=== PATIENT | female | born 1995 | race Asian ===

== ENCOUNTER 2021-12-30 15:10 | Inpatient (IN) | payer BC, SELFPAY ==
[2021-12-30 15:14] VITALS: BP 121/73; BP 124/73; PULSE 72; PULSE 90; RESP 16; TEMP 36.2; O2SAT 100; O2SAT 99; BMI 25.0
[2021-12-30 16:44] LABS: COVID-19 Test Negative (Negative)
--- NOTE | 2021-12-30 16:57 | ED_ITS ---
HPI - Psych General Chief Complaint: Psychiatric Symptoms Stated Complaint: crisis Time Seen by Provider: 12/30/21 16:54 Source: patient and EMS Mode of arrival: EMS Limitations: no limitations History of Present Illness HPI Narrative: Patient is a 26 year old female presenting to the emergency department today with suicidal ideation. Patient states that she has a history of bipolar disorder and depression for which she takes [place]. Patient states that [place] was helping up until a few days ago. Patient's school counselor called and stated that the patient has suicidal ideation, has been shopping for a gun online and plans to go to the [employer] and shoot herself. Patient denies any dizziness, lightheadedness, abdominal pain, nausea, vomiting, fever, chills, blurry vision, double vision, loss of vision, chest pain, difficulty breathing, shortness of breath, back pain, night sweats, pain with urination, increased urinary frequency, increased urinary urgency, blood in her urine or stool, sync ope or a near syncopal episode, recent trauma or falls, bowel incontinence, bladder incontinence, bowel retention, bladder retention, or any other complaints at this time. MD complaint: suicidal ideation Onset (ago): day(s) Duration: constant History of same: Yes Relieving factors: none Exacerbating factors: none Associated psychiatric symptoms: depression and suicidal ideation Related Data Home Medications Medication Instructions Recorded Confirmed lithium carbonate 450 mg 450 tab PO BID 12/30/21 12/30/21 tablet,extended release Allergies Allergy/AdvReac Type Severity Reaction Status Date / Time No Known Allergies Allergy Verified 12/30/21 16:54 Review of Systems Constitutional: Constitutional: Reports no additional constitutional complaints, Denies chills, Denies fever(s) and Denies night sweats Eyes: Eyes: Reports no additional eye complaints, Denies blurry vision, Denies change in vision, Denies diplopia, Denies eye discharge, Denies loss of vision a nd Denies eye pain ENT: Denies dizziness Cardiovascular: Cardiovascular: Reports no additional cardiovascular compla ints, Denies chest pain, Denies lightheadedness, Denies Loss of Consciousness and Denies dyspnea Respiratory: Respiratory: Reports no additional respiratory complaints and Denies dyspnea Gastrointestinal: Gastrointestinal: Reports no additional gastrointestinal complaints, Denies abdominal pain, Denies melena, Denies hematochezia, Denies change in bowel habits and Denies change in stool character Genitourinary: Genitourinary: Denies hematuria, Denies urinary frequency, Denies dysuria, Denies urinary incontinence, Denies urinary hesitancy and Denies urinary urgency Musculoskeletal: Musculoskeletal: Reports no additional musculoskeletal complaints, Denies numbness and Denies tingling Neurologic: Denies dizziness, Denies loss of vision, Denies numbness and Denies tingling Psychiatric: Psychiatric: Reports no additional psychiatric complaints, Reports depression, Denies homicidal ideation and Reports suicidal ideation Endocrine: Endocrine: Reports no additional endocrine complaints Hematologic/Lymphatic: Hematologic/Lymphatic: Reports no additional hematologic/lymphatic complaints Allergic/Immunologic: Allergic/Immunologic: Reports no additional allergic/immunologic complaints [facility] Past Medical History Attestation statement: The following information was validated with the patient. Source: old records reviewed Social History Social History Advance Directives: No Advance Directives Information Provided: No Physical Exam Vital Signs: Vital Signs: Last Vital Signs Temp 97.2 F 12/30/21 15:14 Pulse 90 12/30/21 15:14 Resp 16 12/30/21 15:14 BP 124/73 12/30/21 15:14 Pulse Ox 100 12/30/21 15:14 BMI result Body Mass Index 25.0 Const: General: cooperative, no acute distress, alert and awake Nutritional Appearance: well nourished Orientation/consciousness: patient oriented x3 Limitations: no limitations HENMT: Head: Yes normal to inspection and Yes atraumatic Ears: hearing grossly normal bilaterally and external ears normal General nose exam: Normal external nose present, no nasal discharge noted and no epistaxis Face and sinus: Yes normal facial exam, No abrasion and No laceration Mouth: Normal or al and palatal mucosa present, no drooling and no muffled voice Eyes: General: appearance normal, both eyes and all related structures Periorbital: periorbital findings normal Eyelids: Yes eyelids normal Conjunctivae: conjunctivae normal Pupils: Equal, round and reactive pupils present EOM: EOMs intact bilaterally Neck: Neck: Yes normal visual inspection, Yes full ROM and Yes no lymphadenopathy Chest: Chest palpation & inspection: normal inspection of the chest Resp: Effort & Inspection: normal respiratory effort and able to speak in complete sentences Auscultation: clear to auscultation bilaterally Cardio: Rate: regular rate Rhythm: regular rhythm GI: Inspection: Yes normal to inspection Neuro: General: patient oriented x3 and moves all extremities Cranial nerves: Yes Equal, round and reactive pupils present Cognition (Neuro): normal cognition Motor exam (neuro): 5/5 motor strength present throughout Sensory Exam: Normal double simultaneous stimulation for sensation Coordination: [id number] test normal Extrem: General: Yes normal to inspection, Yes full ROM and Yes capillary refill normal Psych: Appearance: grossly normal Mental Status: mental status grossly normal Affect: normal affect Attitude: cooperative Thought process: Normal thought process present Thought content: Suicidality present and no homicidality Insight: Good insight present (Psych) MDM - Psych MDM Narrative Medical decision making narrative: Patient is a 26 year old male presenting to the emergency department today with suicidal ideation. Patient's physical exam was significant for acute suicidal ideation. Patient's blood work was unremarkable. I explained my physical exam findings as well as all test results to the patient. I answered all questions asked by the patient. Patient was evaluated by the CARE team who obtained a section 12 and plan to have the patient taken upstairs to the psychiatric unit in the morning. Patient to be placed under physician observation at 2039. Differential Diagnosis Differential diagnosis: Likely depression Medical Records Attestation: I reviewed the patient's medical records. Lab Data Attestation: I reviewed the patient's lab results. Result diagrams: 12/30/21 17:12 12/30/21 17:12 Labs: Lab Results 12/30/21 12/30/21 12/30/21 Range/Units 16:22 16:58 17:12 WBC (4.8-10.8) X10*3/uL RBC (4.20-5.50) X10*6/uL Hgb (12.0-16.0) g/dl Hct (37.0-47.0) % MCV (80.0-98.0) fL MCH (27.0-33.0) pg MCHC (31.0-35.0) g/dl RDW (11.0-16.0) % Plt Count (160-400) X10*3/uL MPV (9.4-12.3) fL Immature Gran % (Auto) (0.0-0.4) % Neut % (Auto) (45-73) % Lymph % (Auto) (20-40) % Coleman % (Auto) (2-11) % Eos % (Auto) (0-4) % Baso % (Auto) (0-2) % Lymph # (Auto) (1.2-4.9) X10*3/uL [place] # (Auto) (0.1-1.2) X10*3/uL Eos # (Auto) (0.0-0.4) X10*3/uL Baso # (Auto) (0.0-0.2) X10*3/uL Abs Immat Gran (auto) (0.00-0.03) X10*3/uL Absolute Neuts (auto) (2.0-8.3) x10*3/uL Absolute Nucleated RBC (0.0-0.012) X10*3/uL Nucleated RBC % (auto) (0.0-0.2) /100WBC Sodium (135-145) mmol/L Potassium (3.3-5.1) mmol/L Chloride (96-108) mmol/L Carbon Dioxide (22-29) mmol/L Anion Gap (12-20) BUN (9-16) mg/dL Creatinine (0.5-1.4) mg/dL Estim Creat Clear Calc Estimated GFR Random Glucose (60-115) mg/dL Calcium (8.4-10.2) mg/dL Total Bilirubin (0.0-1.0) mg/dL AST (5-31) U/L ALT (0-31) U/L Alkaline Phosphatase (39-117) U/L Total Protein (6.5-8.0) g/dL Albumin (3.5-5.0) g/dL TSH (0.32-4.0) uIU/mL Urine Opiates Screen Not Detected (Not Detect) Urine Fentanyl Screen Not Detected (Not Detect) Ur Barbiturates Screen Not Detected (Not Detect) Ur Phencyclidine Scrn Not Detected (Not Detect) Ur Amphetamines Screen Not Detected (Not Detect) U Benzodiazepines Scrn Not Detected (Not Detect) [place] 0.72 (0.60-1.20) mmol/L Urine Cocaine Screen Not Detected (Not Detect) U Marijuana (THC) Screen Not Detected (Not Detect) Ethyl Alcohol mg/dL COVID-19 (UBALDO) Negative (Negative) COVID-19 Clin Com See Note 12/30/21 12/30/21 12/30/21 Range/Units 17:12 17:12 17:12 WBC 13.2 H (4.8-10.8) X10*3/uL RBC 4.78 (4.20-5.50) X10*6/uL Hgb 13.1 (12.0-16.0) g/dl Hct 40.0 (37.0-47.0) % MCV 83.7 (80.0-98.0) fL MCH 27.4 (27.0-33.0) pg MCHC 32.8 (31.0-35.0) g/dl RDW 13.9 (11.0-16.0) % Plt Count 413 H (160-400) X10*3/uL MPV 9.6 (9.4-12.3) fL Immature Gran % (Auto) 0.3 (0.0-0.4) % Neut % (Auto) 75.0 H (45-73) % Lymph % (Auto) 16.7 L (20-40) % Coleman % (Auto) 4.8 (2-11) % Eos % (Auto) 2.4 (0-4) % Baso % (Auto) 0.8 (0-2) % Lymph # (Auto) 2.2 (1.2-4.9) X10*3/uL Coleman # (Auto) 0.6 (0.1-1.2) X10*3/uL Eos # (Auto) 0.3 (0.0-0.4) X10*3/uL Baso # (Auto) 0.1 (0.0-0.2) X10*3/uL Abs Immat Gran (auto) 0.04 H (0.00-0.03) X10*3/uL Absolute Neuts (auto) 9.9 H (2.0-8.3) x10*3/uL Absolute Nucleated RBC 0.000 (0.0-0.012) X10*3/uL Nucleated RBC % (auto) 0.0 (0.0-0.2) /100WBC Sodium 139 (135-145) mmol/L Potassium 4.3 (3.3-5.1) mmol/L Chloride 106 (96-108) mmol/L Carbon Dioxide 23 (22-29) mmol/L Anion Gap 14 (12-20) BUN 9 (9-16) mg/dL Creatinine 1.30 (0.5-1.4) mg/dL Estim Creat Clear Calc 62.4 Estimated GFR 50 Random Glucose 94 (60-115) mg/dL Calcium 9.9 (8.4-10.2) mg/dL Total Bilirubin 0.5 (0.0-1.0) mg/dL AST 26 (5-31) U/L ALT 16 (0-31) U/L Alkaline Phosphatase 90 (39-117) U/L Total Protein 7.7 (6.5-8.0) g/dL Albumin 4.5 (3.5-5.0) g/dL TSH 0.85 (0.32-4.0) uIU/mL Urine Opiates Screen (Not Detect) Urine Fentanyl Screen (Not Detect) Ur Barbiturates Screen (Not Detect) Ur Phencyclidine Scrn (Not Detect) Ur Amphetamines Screen (Not Detect) U Benzodiazepines Scrn (Not Detect) [place] (0.60-1.20) mmol/L Urine Cocaine Screen (Not Detect) U Marijuana (THC) Screen (Not Detect) Ethyl Alcohol < 10 mg/dL COVID-19 (UBALDO) (Negative) COVID-19 Clin Com Discharge Plan Discharge Clinical Impression: Bipolar disorder, Suicidal ideation Patient Disposition: Still a Patient Prescriptions: No Action lithium carbonate 450 mg tablet extended release 450 tab PO BID 0RF Print Language: Vietnamese
[2021-12-30 17:19] LABS: MANUAL DIFF FLAG NO
[2021-12-30 17:20] LABS: Basophils Absolute Auto 0.1 X10*3/uL (0.0-0.2); Basophils Percent Auto 0.8 % (0-2); Eosinophils Absolute Auto 0.3 X10*3/uL (0.0-0.4); Eosinophils Percent Auto 2.4 % (0-4); Hemoglobin 13.1 g/dl (12.0-16.0); Imm Gran Abs Auto 0.04 X10*3/uL (0.00-0.03); Imm Gran Pct Auto 0.3 % (0.0-0.4); Lymphocytes Absolute Auto 2.2 X10*3/uL (1.2-4.9); Lymphocytes Percent Auto 16.7 % (20-40); Mean Corpuscular HGB Conc 32.8 g/dl (31.0-35.0); Mean Corpuscular Hemoglobin 27.4 pg (27.0-33.0); Mean Corpuscular Volume 83.7 fL (80.0-98.0); Mean Platelet Volume 9.6 fL (9.4-12.3); Monocytes Absolute Auto 0.6 X10*3/uL (0.1-1.2); Monocytes Percent Auto 4.8 % (2-11); Neutrophils Absolute Auto 9.9 x10*3/uL (2.0-8.3); Platelet Count 413 X10*3/uL (160-400); Red Blood Count 4.78 X10*6/uL (4.20-5.50); Red Cell Distribution Width 13.9 % (11.0-16.0); White Blood Count 13.2 X10*3/uL (4.8-10.8)
[2021-12-30 17:27] LABS: Lithium 0.72 mmol/L (0.60-1.20)
[2021-12-30 17:27] LABS: Amphetamine Screen Urine Not Detected (Not Detect); Barbiturates, Urine Not Detected (Not Detect); Benzodiazepines Screen Urine Not Detected (Not Detect); Cannabinoid Screen Urine Not Detected (Not Detect); Cocaine Screen Urine Not Detected (Not Detect); Fentanyl, urine Not Detected (Not Detect); Opiate Screen Urine Not Detected (Not Detect); Phencyclidine Screen Urine Not Detected (Not Detect)
[2021-12-30 17:32] LABS: Ethanol < 10 mg/dL
[2021-12-30 17:34] LABS: Alanine Aminotransferase 16 U/L (0-31); Albumin Level 4.5 g/dL (3.5-5.0); Alkaline Phosphatase 90 U/L (39-117); Anion Gap 14 (12-20); Aspartate Amino Transferase 26 U/L (5-31); Bilirubin Total 0.5 mg/dL (0.0-1.0); Blood Urea Nitrogen 9 mg/dL (9-16); Calcium 9.9 mg/dL (8.4-10.2); Carbon Dioxide 23 mmol/L (22-29); Chloride 106 mmol/L (96-108); Creatinine Clr Calc Pharmacy 62.4; Estimated Glomerular Filt Rate 50; Glucose Random 94 mg/dL (60-115); Potassium 4.3 mmol/L (3.3-5.1); Sodium 139 mmol/L (135-145); Total Protein 7.7 g/dL (6.5-8.0)
[2021-12-30 17:54] LABS: TSH reflex Free T4 0.85 uIU/mL (0.32-4.0)
--- NOTE | 2021-12-30 18:35 | PC.NURSE ---
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 Doris stated the pt told her that she researched on the internet how and where to purchase a firearm because she wants to go into the [employer] and kill herself. currently pt admits si, denies hi. pt on constant supervision, bhn consult sent, pt seen by care team.
[2021-12-30] MEDS: Lithium Carbonate ER 450 MG TABLET.ER PO (21:08)
[2021-12-30] MEDS: diphenhydrAMINE HCL 25 MG TABLET 50 MG PO (22:47)
[2021-12-30] MEDS: OLANZapine 5 MG TABLET PO (22:47)
--- NOTE | 2021-12-31 | ECG_ITS ---
Test Reason : MED CLEARANCE Blood Pressure : / mmHG Vent. Rate : 071 BPM Atrial Rate : 071 BPM P-R Int : 164 ms QRS Dur : 084 ms QT Int : 368 ms P-R-T Axes : 027 074 040 degrees QTc Int : 399 ms Normal sinus rhythm with sinus arrhythmia Nonspecific T wave abnormality Borderline ECG No previous ECGs available Referred By: Ann Jara Electronically Signed By:AKHIL MATTHEWS
--- NOTE | 2021-12-31 00:03 | PC.NURSE ---
Patient was agitated over not being able to sleep, provider notified/ordered Olanzapine 5 mg po and Benadryl 50 mg po administered as ordered at 2247 with positive effect, VSS, disposition per care team is section 12 inpatient bed search, will continue to monitor.
--- NOTE | 2021-12-31 06:33 | PC.NURSE ---
Patient slept through the night, no distress observed/reported, behavior non concerning at this time, medication compliant, mood depressed, disposition per care team is section 12 inpatient bed search, will continue to monitor.
[2021-12-31 06:49] VITALS: BP 100/53; PULSE 53; RESP 15; TEMP 36.7; O2SAT 99
--- NOTE | 2021-12-31 07:16 | PC.NURSE ---
patient appears to remain asleep at present respirations are even and unlabored, patient appears in no distress.
[2021-12-31] MEDS: Lithium Carbonate ER 450 MG TABLET.ER PO ×2 (13:54→21:36)
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
[2021-12-31 16:56] VITALS: BMI 25.0
[2021-12-31 16:57] VITALS: BP 129/67; PULSE 95; RESP 18; TEMP 36.4; O2SAT 95
--- NOTE | 2021-12-31 17:10 | PC.NURSE ---
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 During a risk assessment completed by the clinician at [facility], Cynthia requested an increase in her lithium dosage and reported she had been researching nearby states to access firearms. Cynthia reports that [place] 'stopped working' and she finds herself in depressive states more often. She endorses continued thoughts of SI, though acknowledges that she cannot access a gun while on the unit. 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 It's never not consensual because I'm too drunk to refuse.' Cynthia reports a past attempt to hang herself when she was 14 years old but none since. She reports a hx of trauma, PTSD. Cynthia denies any significant medical history. She denies HI, denies AH or VH.
[2021-12-31] MEDS: diphenhydrAMINE HCL 25 MG TABLET 50 MG PO (21:36)
[2022-01-01] MEDS: Lithium Carbonate ER 450 MG TABLET.ER PO ×2 (10:45→21:19)
[2022-01-01 10:46] VITALS: BP 112/70; PULSE 67; RESP 16; TEMP 37.1; O2SAT 100
[2022-01-01 17:17] LABS: UPreg QC Valid YES; Urine Pregnancy NEGATIVE (NEGATIVE)
--- NOTE | 2022-01-01 18:22 | P.PNPSI_ITS ---
Subjective Subjective Date of Service: 01/01/22 Reason For Visit: SI Interim History: Patient seen and discussed with team. Patient evaluated this today and upon interview she reports they gave me drugs so I slept pretty good. States on zyprexa 5 mg QHS she woke up and didnt feel too drowsy, felt natural. Pt is still laughing incongruently during interview, intense eye contact at times. Mood is pretty okay. Discusses her bf, who is age 60 in [place], [place]. Says he is sending her cookies, books, and a puzzle to the unit and he bought her a plane ticket to see him over spring, bought her new ice skates, will be buying me ice skating lessons for every single day im there. She states the relationship is consensual and that she feels safe, however also says without him, financially i wouldnt get by and that i'm choosing to be in this relationship rather than work. Denies hallucinations or thought disorder. Denies racing thoughts. Says her anxiety is not much. Was feeling stepan suicidal earlier today, but currently denies SI. States she had SI thoughts because someone was interviewing me, I got angry because i had to relive everything again and that I started giving them a hard time. ? Patient is safe and present in the milieu, interacting with peers. Denies irritability or assaultive ideation. Says she feels safe. Medication Compliance: Yes Side effects from medications: No Attending Groups: Yes Review of Systems Acute medical concerns: No Medical Review of Systems: unchanged Mental Status Exam Mental Status Exam Narrative: A&O. Casual dress, good hygiene. Intense eye contact at times, mostly attentive. No Tics or Tremors. No abnormal involuntary movements. Pt is engaged in conversation. Non-pressured speech, spontaneous with regular rate and rhythm, however speaking in notable baby voice (high pitched). Mood is okay, affect is labile, laughing. Denies active/ passive SI, denies SIB/HI upon inquiry. Denies A/VH or delusional thought content. Thoughts continue to be distorted, rigid. No known cognitive or memory impairment. Insight/ Judgment limited but adequate. Diagnostics Vital Signs (24Hr): Vital Signs - 24 hr 01/01/22 10:46 Temperature 98.7 F Pulse Rate 67 Respiratory Rate 16 Blood Pressure 112/70 Pulse Oximetry 100 BMI result Body Mass Index 25.0 Labs Results: 12/30/21 17:12 12/30/21 17:12 Labs: Laboratory Results - last 48 hr 01/01/22 17:01 Urine Test NEGATIVE Medications Medications Current Medications Acetaminophen (Acetaminophen 325 Mg Tablet) 650 mg PO Q6H PRN PRN Reason: Headache/Pain Mild Scale (1-3) Al Hydroxide/Mg Hydroxide (Magnesium Hydrox/Alum Hydrox 30 Ml Oral.Susp) 30 ml PO Q6H PRN PRN Reason: Heartburn/Nausea Diphenhydramine HCl (Diphenhydramine Hcl 25 Mg Tablet) 50 mg PO BEDTIME PRN PRN Reason: Sleep Last Admin: 12/31/21 21:36 Dose: 50 mg Documented by: Hydroxyzine HCl (Hydroxyzine Hcl 25 Mg Tablet) 25 mg PO Q6H PRN PRN Reason: Anxiety [place] Carbonate ([place] Carbonate Er 450 Mg Tablet.Er) 450 mg PO BID BRIGHT Last Admin: 01/01/22 10:45 Dose: 450 mg Documented by: Magnesium Hydroxide (Milk Of Magnesia 30 Ml Oral.Susp) 30 ml PO DAILY PRN PRN Reason: Constipation Olanzapine (Olanzapine 5 Mg Tablet) 5 mg PO BEDTIME PRN PRN Reason: agitation Trazodone HCl (Trazodone Hcl 50 Mg Tablet) 50 mg PO BEDTIME PRN PRN Reason: Insomnia Allergies Allergies Allergy/AdvReac Type Severity Reaction Status Date / Time No Known Allergies Allergy Verified 12/30/21 16:54 Assessment & Plan Assessment & Plan (1) Bipolar II disorder: Status: Acute Code(s): F31.81 - Bipolar II disorder (2) Post traumatic stress disorder (PTSD): Status: Acute Code(s): F43.10 - Post-traumatic stress disorder, unspecified (3) Borderline personality disorder: Status: Acute Code(s): F60.3 - Borderline personality disorder Plan 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 Female, Sophomore at [employer], who carries a dx of bipolar II DO, PTSD. Appears to have BPD. I would also rule out schizoaffective DO, bipolar type. Pt presents somewhat bizarrely, using what can best be described as sexy baby voice during interview, however she has insight into this and says she is frustrated with it. 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 Affect is bizarre, as pt is laughing incongruently, activated. She denies hallucinations. Her thinking is rigid and illogical at times. She continues to endorse passive SI. Has limited past psych hx, as she briefly participated in OP therapy and is now working with Dr. Devlin, [facility]. Says lithium trial is her first psychotropic medication trial. Plan: Pt states she wants to continue on lithium, would be willing to trail an increased dose. Li level is 0.72. She was given zyprexa 5 mg and benadryl 50 mg while in the ED BH pod, says this helped with sleep and she would like to try this again tonight. Will defer to primary psych team for further adjustment. Monitor response to medications. Monitor for safety in the milieu. Discharge on stabilization. Patient seen. Chart reviewed. Discussed with team. Obtain collateral contact info?as needed 01/01: increase zyprexa to 10 mg QHS to target mood lability. I spent minutes with the patient and/or on the patient floor today, greater than?50% of which was spent counseling/coordinating care. Reason for contiued inpatient stay Substantial Risk for: harm to self, rapid decompensation and med/psych decompensation
[2022-01-01 20:37] VITALS: BP 116/66; PULSE 84; TEMP 36.6; O2SAT 100
[2022-01-01] MEDS: OLANZapine 10 MG TABLET PO (21:19)
[2022-01-01] MEDS: diphenhydrAMINE HCL 25 MG TABLET 50 MG PO (21:19)
[2022-01-02 06:00] VITALS: BP 118/68; PULSE 86; RESP 16; TEMP 36.8; O2SAT 98
--- NOTE | 2022-01-02 09:50 | P.PNPSI_ITS ---
Subjective Subjective Date of Service: 01/02/22 Reason For Visit: SI Subjective Notes: Conditional Voluntary Medical Problems Affecting Mental Status: No Interim History: Patient was seen and discussed in rounds today. She continues to feel depressed and has been tearful and labile. Irritable at times. She is eating and sleeping adequately. No complaints or side effects. No SI. She is feeling safe on the unit. She is tolerating the increase of Zyprexa with no side effects. No changes were made today Side effects from medications: No Diagnostics Vital Signs (24Hr): Vital Signs - 24 hr 01/01/22 10:46 01/01/22 20:37 Temperature 98.7 F 97.9 F Pulse Rate 67 84 Respiratory Rate 16 Blood Pressure 112/70 116/66 Pulse Oximetry 100 100 BMI result Body Mass Index 25.0 Labs Results: 12/30/21 17:12 12/30/21 17:12 Labs: Laboratory Results - last 48 hr 01/01/22 17:01 Urine Test NEGATIVE Medications Medications Current Medications Acetaminophen (Acetaminophen 325 Mg Tablet) 650 mg PO Q6H PRN PRN Reason: Headache/Pain Mild Scale (1-3) Al Hydroxide/Mg Hydroxide (Magnesium Hydrox/Alum Hydrox 30 Ml Oral.Susp) 30 ml PO Q6H PRN PRN Reason: Heartburn/Nausea Diphenhydramine HCl (Diphenhydramine Hcl 25 Mg Tablet) 50 mg PO BEDTIME PRN PRN Reason: Sleep Last Admin: 01/01/22 21:19 Dose: 50 mg Documented by: Hydroxyzine HCl (Hydroxyzine Hcl 25 Mg Tablet) 25 mg PO Q6H PRN PRN Reason: Anxiety [place] Carbonate ([place] Carbonate Er 450 Mg Tablet.Er) 450 mg PO BID BRIGHT Last Admin: 01/01/22 21:19 Dose: 450 mg Documented by: Magnesium Hydroxide (Milk Of Magnesia 30 Ml Oral.Susp) 30 ml PO DAILY PRN PRN Reason: Constipation Olanzapine (Olanzapine 10 Mg Tablet) 10 mg PO BEDTIME PRN PRN Reason: agitation Last Admin: 01/01/22 21:19 Dose: 10 mg Documented by: Trazodone HCl (Trazodone Hcl 50 Mg Tablet) 50 mg PO BEDTIME PRN PRN Reason: Insomnia Allergies Allergies Allergy/AdvReac Type Severity Reaction Status Date / Time No Known Allergies Allergy Verified 12/30/21 16:54 Assessment & Plan Assessment & Plan (1) Bipolar II disorder: Status: Acute Code(s): F31.81 - Bipolar II disorder (2) Post traumatic stress disorder (PTSD): Status: Acute Code(s): F43.10 - Post-traumatic stress disorder, unspecified (3) Borderline personality disorder: Status: Acute Code(s): F60.3 - Borderline personality disorder Plan 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 Appears to have BPD. I would also rule out schizoaffective DO, bipolar type. Pt presents somewhat bizarrely, using what can best be described as sexy baby voice during interview, however she has insight into this and says she is frustrated with it. 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 Affect is bizarre, as pt is laughing incongruently, activated. She denies hallucinations. Her thinking is rigid and illogical at times. She continues to endorse passive SI. Has limited past psych hx, as she briefly participated in OP therapy and is now working with Dr. Devlin, [facility]. Says lithium trial is her first psychotropic medication trial. Plan: Pt states she wants to continue on lithium, would be willing to trail an increased dose. Li level is 0.72. She was given zyprexa 5 mg and benadryl 50 mg while in the ED BH pod, says this helped with sleep and she would like to try this again tonight. Will defer to primary psych team for further adjustment. Monitor response to medications. Monitor for safety in the milieu. Discharge on stabilization. Patient seen. Chart reviewed. Discussed with team. Obtain collateral contact info?as needed 01/01: increase zyprexa to 10 mg QHS 01/02: Continue current regimen and plans with no changes I spent minutes with the patient and/or on the patient floor today, greater than?50% of which was spent counseling/coordinating care. Reason for contiued inpatient stay Substantial Risk for: other
--- NOTE | 2022-01-02 09:55 | HO.PSYCHPN ---
Subjective Subjective Date of Service: 01/02/22 Reason For Visit: SI Subjective Notes: Conditional Voluntary Medical Problems Affecting Mental Status: No Interim History: Patient was seen and discussed in rounds today. She Medication Compliance: Yes Side effects from medications: No Diagnostics Vital Signs (24Hr): Vital Signs - 24 hr 01/01/22 10:46 01/01/22 20:37 Temperature 98.7 F 97.9 F Pulse Rate 67 84 Respiratory Rate 16 Blood Pressure 112/70 116/66 Pulse Oximetry 100 100 BMI result Body Mass Index 25.0 Labs Results: 12/30/21 17:12 12/30/21 17:12 Labs: Laboratory Results - last 48 hr 01/01/22 17:01 Urine Test NEGATIVE Medications Medications Current Medications Acetaminophen (Acetaminophen 325 Mg Tablet) 650 mg PO Q6H PRN PRN Reason: Headache/Pain Mild Scale (1-3) Al Hydroxide/Mg Hydroxide (Magnesium Hydrox/Alum Hydrox 30 Ml Oral.Susp) 30 ml PO Q6H PRN PRN Reason: Heartburn/Nausea Diphenhydramine HCl (Diphenhydramine Hcl 25 Mg Tablet) 50 mg PO BEDTIME PRN PRN Reason: Sleep Last Admin: 01/01/22 21:19 Dose: 50 mg Documented by: Hydroxyzine HCl (Hydroxyzine Hcl 25 Mg Tablet) 25 mg PO Q6H PRN PRN Reason: Anxiety [place] Carbonate ([place] Carbonate Er 450 Mg Tablet.Er) 450 mg PO BID BRIGHT Last Admin: 01/01/22 21:19 Dose: 450 mg Documented by: Magnesium Hydroxide (Milk Of Magnesia 30 Ml Oral.Susp) 30 ml PO DAILY PRN PRN Reason: Constipation Olanzapine (Olanzapine 10 Mg Tablet) 10 mg PO BEDTIME PRN PRN Reason: agitation Last Admin: 01/01/22 21:19 Dose: 10 mg Documented by: Trazodone HCl (Trazodone Hcl 50 Mg Tablet) 50 mg PO BEDTIME PRN PRN Reason: Insomnia Allergies Allergies Allergy/AdvReac Type Severity Reaction Status Date / Time No Known Allergies Allergy Verified 12/30/21 16:54 Assessment & Plan Assessment & Plan (1) Bipolar II disorder: Status: Acute Code(s): F31.81 - Bipolar II disorder (2) Post traumatic stress disorder (PTSD): Status: Acute Code(s): F43.10 - Post-traumatic stress disorder, unspecified (3) Borderline personality disorder: Status: Acute Code(s): F60.3 - Borderline personality disorder Plan 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 Appears to have BPD. I would also rule out schizoaffective DO, bipolar type. Pt presents somewhat bizarrely, using what can best be described as sexy baby voice during interview, however she has insight into this and says she is frustrated with it. 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 Affect is bizarre, as pt is laughing incongruently, activated. She denies hallucinations. Her thinking is rigid and illogical at times. She continues to endorse passive SI. Has limited past psych hx, as she briefly participated in OP therapy and is now working with Dr. Devlin, [facility]. Says lithium trial is her first psychotropic medication trial. Plan: Pt states she wants to continue on lithium, would be willing to trail an increased dose. Li level is 0.72. She was given zyprexa 5 mg and benadryl 50 mg while in the ED BH pod, says this helped with sleep and she would like to try this again tonight. Will defer to primary psych team for further adjustment. Monitor response to medications. Monitor for safety in the milieu. Discharge on stabilization. Patient seen. Chart reviewed. Discussed with team. Obtain collateral contact info?as needed 01/01: increase zyprexa to 10 mg QHS 01/02: Continue current regimen and plans with no changes I spent minutes with the patient and/or on the patient floor today, greater than?50% of which was spent counseling/coordinating care.
[2022-01-02] MEDS: Lithium Carbonate ER 450 MG TABLET.ER PO ×2 (10:04→22:04)
[2022-01-02 20:45] VITALS: BP 122/60; PULSE 81; TEMP 36.7; O2SAT 100
[2022-01-02] MEDS: diphenhydrAMINE HCL 25 MG TABLET 50 MG PO (22:04)
[2022-01-02] MEDS: OLANZapine 10 MG TABLET PO (22:04)
--- NOTE | 2022-01-03 08:50 | P.PNPSI_ITS ---
Subjective Subjective Date of Service: 01/03/22 Reason For Visit: SI Subjective Notes: Conditional Voluntary Medical Problems Affecting Mental Status: No Interim History: Patient was seen and discussed in rounds today. She is feeling less depressed and anxious. No SI. No symptoms of psychosis. She is visible, interactive and save. She does socialize. Eating and sleeping adequately. No complaints or side effects. 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, headache GI: No c/o Nausea, Vomiting, diarrhea, constipation or heartburn -Denies hx of seizures -Denies hx of TBI/ concussion -Denies hx of cardiac issues Yes all other systems are reviewed and are negative Diagnostics Vital Signs (24Hr): Vital Signs - 24 hr 01/02/22 20:45 Temperature 98.0 F Pulse Rate 81 Blood Pressure 122/60 Pulse Oximetry 100 BMI result Body Mass Index 25.0 Labs Results: 12/30/21 17:12 12/30/21 17:12 Labs: Laboratory Results - last 48 hr 01/01/22 17:01 Urine Test NEGATIVE Medications Medications Current Medications Acetaminophen (Acetaminophen 325 Mg Tablet) 650 mg PO Q6H PRN PRN Reason: Headache/Pain Mild Scale (1-3) Al Hydroxide/Mg Hydroxide (Magnesium Hydrox/Alum Hydrox 30 Ml Oral.Susp) 30 ml PO Q6H PRN PRN Reason: Heartburn/Nausea Diphenhydramine HCl (Diphenhydramine Hcl 25 Mg Tablet) 50 mg PO BEDTIME PRN PRN Reason: Sleep Last Admin: 01/02/22 22:04 Dose: 50 mg Documented by: Hydroxyzine HCl (Hydroxyzine Hcl 25 Mg Tablet) 25 mg PO Q6H PRN PRN Reason: Anxiety [place] Carbonate ([place] Carbonate Er 450 Mg Tablet.Er) 450 mg PO BID BRIGHT Last Admin: 01/02/22 22:04 Dose: 450 mg Documented by: Magnesium Hydroxide (Milk Of Magnesia 30 Ml Oral.Susp) 30 ml PO DAILY PRN PRN Reason: Constipation Olanzapine (Olanzapine 10 Mg Tablet) 10 mg PO BEDTIME PRN PRN Reason: agitation Last Admin: 01/02/22 22:04 Dose: 10 mg Documented by: Trazodone HCl (Trazodone Hcl 50 Mg Tablet) 50 mg PO BEDTIME PRN PRN Reason: Insomnia Allergies Allergies Allergy/AdvReac Type Severity Reaction Status Date / Time No Known Allergies Allergy Verified 12/30/21 16:54 Assessment & Plan Assessment & Plan (1) Bipolar II disorder: Status: Acute Code(s): F31.81 - Bipolar II disorder (2) Post traumatic stress disorder (PTSD): Status: Acute Code(s): F43.10 - Post-traumatic stress disorder, unspecified (3) Borderline personality disorder: Status: Acute Code(s): F60.3 - Borderline personality disorder Plan 01/03: Continue current regimen and plans with no changes I spent minutes with the patient and/or on the patient floor today, greater than?50% of which was spent counseling/coordinating care. Reason for contiued inpatient stay Substantial Risk for: other
[2022-01-03] MEDS: Lithium Carbonate ER 450 MG TABLET.ER PO ×2 (09:36→21:13)
[2022-01-03 10:00] VITALS: BP 126/73; PULSE 104; RESP 18; TEMP 36.8; O2SAT 100
--- NOTE | 2022-01-03 12:05 | PC.NURSE ---
Patient submitted 3 day notice.
[2022-01-03 18:00] VITALS: BP 120/60; PULSE 84; RESP 18; TEMP 36.8; O2SAT 99
[2022-01-03] MEDS: diphenhydrAMINE HCL 25 MG TABLET 50 MG PO (21:13)
[2022-01-03] MEDS: OLANZapine 10 MG TABLET PO (21:13)
[2022-01-04 10:36] VITALS: BP 123/79; PULSE 132; RESP 17; TEMP 36.8; O2SAT 96
[2022-01-04] MEDS: Lithium Carbonate ER 450 MG TABLET.ER PO ×2 (10:38→20:39)
--- NOTE | 2022-01-04 14:13 | P.PNPSI_ITS ---
Subjective Subjective Date of Service: 01/04/22 Reason For Visit: SI Interim History: pt found seated at her desk in her room doing a craft/art project. she comes with MD to interview room. she speaks in a childlike voice. she expresses the desire to discharge form the hospital, taking an indignant and condescending tone regarding her being here and with whom. she believes she should just discharge and restart school. upset about falling behind here. states even if she can't return to school she will be able to return to [facility] and stay with her uncle. per staff, 3-day matures 01/06. slept 8 hours last night. 0/10 anx/dep. i feel great. denies SI/HI/AVH. eating well. visible. attending groups. wants DC. c/o boredom. Mental Status Exam Mental Status Exam Narrative: dressed in scrubs. adequately groomed. cooperative with interview, no PMA/PMR. speech somewhat increased in rate in apparent irritation. nml amount, loudness, latency, prosody. thoughts linear and questionably logical (not seeming to appreciate the gravity of her position). no delusions or paranoia evident. affect full range, hyper-intense, min-labile, not consistently consistent with context (laughing off events which would be enormous setbacks for her, such as not being allowed to return to school this semester). mood variable. no SI/HI/AVH expressed. Diagnostics Vital Signs (24Hr): Vital Signs - 24 hr 01/03/22 18:00 01/04/22 10:36 Temperature 98.2 F 98.3 F Pulse Rate 84 132 H Respiratory Rate 18 17 Blood Pressure 120/60 123/79 Pulse Oximetry 99 96 BMI result Body Mass Index 25.0 Labs Results: 12/30/21 17:12 12/30/21 17:12 Medications Medications Current Medications Acetaminophen (Acetaminophen 325 Mg Tablet) 650 mg PO Q6H PRN PRN Reason: Headache/Pain Mild Scale (1-3) Al Hydroxide/Mg Hydroxide (Magnesium Hydrox/Alum Hydrox 30 Ml Oral.Susp) 30 ml PO Q6H PRN PRN Reason: Heartburn/Nausea Diphenhydramine HCl (Diphenhydramine Hcl 25 Mg Tablet) 50 mg PO BEDTIME PRN PRN Reason: Sleep Last Admin: 01/03/22 21:13 Dose: 50 mg Documented by: Hydroxyzine HCl (Hydroxyzine Hcl 25 Mg Tablet) 25 mg PO Q6H PRN PRN Reason: Anxiety [place] Carbonate ([place] Carbonate Er 450 Mg Tablet.Er) 450 mg PO BID BRIGHT Last Admin: 01/04/22 10:38 Dose: 450 mg Documented by: Magnesium Hydroxide (Milk Of Magnesia 30 Ml Oral.Susp) 30 ml PO DAILY PRN PRN Reason: Constipation Olanzapine (Olanzapine 10 Mg Tablet) 10 mg PO BEDTIME PRN PRN Reason: agitation Last Admin: 01/03/22 21:13 Dose: 10 mg Documented by: Trazodone HCl (Trazodone Hcl 50 Mg Tablet) 50 mg PO BEDTIME PRN PRN Reason: Insomnia Allergies Allergies Allergy/AdvReac Type Severity Reaction Status Date / Time No Known Allergies Allergy Verified 12/30/21 16:54 Assessment & Plan Assessment & Plan (1) Bipolar II disorder: Status: Acute Code(s): F31.81 - Bipolar II disorder (2) Post traumatic stress disorder (PTSD): Status: Acute Code(s): F43.10 - Post-traumatic stress disorder, unspecified (3) Borderline personality disorder: Status: Acute Code(s): F60.3 - Borderline personality disorder Plan 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 Appears to have BPD. I would also rule out schizoaffective DO, bipolar type. Pt presents somewhat bizarrely, using what can best be described as sexy baby voice during interview, however she has insight into this and says she is frustrated with it. 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 Affect is bizarre, as pt is laughing incongruently, activated. She denies hallucinations. Her thinking is rigid and illogical at times. Has limited past psych hx, as she briefly participated in OP therapy and is now working with Dr. Devlin, [facility]. Says lithium trial is her first psychotropic medication trial. Plan: Pt states she wants to continue on lithium, would be willing to trial an increased dose. Li level is 0.72. She was given zyprexa 5 mg and benadryl 50 mg while in the ED BH pod, says this helped with sleep and she would like to try this again tonight. Will defer to primary psych team for further adjustment. Monitor response to medications. Monitor for safety in the milieu. Discharge on stabilization. Patient seen. Chart reviewed. Discussed with team. Obtain collateral contact info?as needed 01/01: increase zyprexa to 10 mg QHS to target mood lability. 01/04: continues on outpt lithium dosing and zyprexa 10. 3-day notice matures 01/06. coordinate DC and aftercare with [facility]. I spent minutes with the patient and/or on the patient floor today, greater than?50% of which was spent counseling/coordinating care. Reason for contiued inpatient stay Substantial Risk for: harm to self, inability to function and rapid decompensation
[2022-01-04 18:00] VITALS: BP 117/80; PULSE 106; RESP 18; TEMP 36.8; O2SAT 98
[2022-01-04] MEDS: Milk of Magnesia 30 ML ORAL.SUSP PO (18:35)
[2022-01-04] MEDS: diphenhydrAMINE HCL 25 MG TABLET 50 MG PO (20:39)
[2022-01-04] MEDS: OLANZapine 10 MG TABLET PO (20:39)
[2022-01-05 06:00] VITALS: BP 126/76; PULSE 80; RESP 16; TEMP 36.4; O2SAT 98
[2022-01-05] MEDS: Lithium Carbonate ER 450 MG TABLET.ER PO ×2 (09:20→20:53)
[2022-01-05 18:00] VITALS: BP 113/63; PULSE 88; RESP 16; TEMP 36.8; O2SAT 99
[2022-01-05] MEDS: OLANZapine 10 MG TABLET PO (20:52)
[2022-01-05] MEDS: diphenhydrAMINE HCL 25 MG TABLET 50 MG PO (20:53)
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
[2022-01-06 08:12] VITALS: BP 112/70; PULSE 79; RESP 17; TEMP 36.7; O2SAT 100
[2022-01-06] MEDS: Lithium Carbonate ER 450 MG TABLET.ER PO (08:18)
--- NOTE | 2022-01-06 10:03 | PC.NURSE ---
Pt ready and aware of discharge. PT with bright affect and mood. PT denies SI/HI, denies anxiety and depression. Discharge instructions discussed, all questions answered. Pt aware that she will have to follow up with appointments with PCP and mental health services once she gets back to [place]. Belongings returned. Pt ambulated off unit with steady gait.
== END 2022-01-06 10:03 | disposition home or self-care (01) | DRG 753 ==
LOC: HO.ED 20:43 → HO.PADLT16 12-31 14:46
PROVIDERS: Nurse Practitioner Family; Physician Assistant Medical; Admitting Provider Psychiatry & Neurology Psychiatry; Emergency Provider Emergency Medicine; Visit Provider Psychiatry & Neurology Psychiatry
DX: F31.81 Bipolar II disorder (principal); R45.851 Suicidal ideations; F43.10 Post-traumatic stress disorder, unspecified; F60.3 Borderline personality disorder; Z20.822 Contact with and (suspected) exposure to COVID-19; Z79.899 Other long term (current) drug therapy
CPT/HCPCS: 36415; 80053; 80178; 80307; 81025; 82077; 84443; 85025; 87635; 93005; 99285; Q0163